=== PATIENT | male | born 1980 | race Caucasian/White ===

== ENCOUNTER 2022-02-15 11:25 | Emergency (ER) | payer OTHER ==
[~2022-02-15] VITALS: Ht 177.8 cm; Wt 100.0 kg
[2022-02-15 12:53] LABS: BASOPHILS % 0.6 % (0.0-2.0); EOSINOPHILS % 8.6 % (0.0-5.0); HEMATOCRIT. 48.4 % (42.0-52.0); HEMOGLOBIN. 16.8 g/dL (14.0-18.0); LYMPHOCYTES % 37.9 % (20.0-50.0); MEAN CORPUSCULAR HEMOGLOBIN 30.7 pg (28.0-32.0); MEAN CORPUSCULAR VOLUME 88.2 fL (80.0-94.0); MEAN PLATELET VOLUME 7.8 fl (7.4-10.4); MONOCYTES % 5.7 % (2.0-8.0); NEUTROPHILS % 47.2 % (40.0-76.0); PLATELET 177 x1000/uL (130-400); RED BLOOD CELL COUNT 5.48 mill/uL (4.7-6.1); RED CELL DISTRIBUTION WIDTH 14.6 % (11.6-14.6)
[2022-02-15] MEDS ORDERED: HALOPERIDOL LACTATE 5MG/ML VIAL IM STA (13:30)
[2022-02-15] MEDS ORDERED: DIPHENHYDRAMINE 50MG/ML VIAL IM STA (13:30)
[2022-02-15] MEDS ORDERED: MIDAZOLAM HCL 2 MG/2 ML VIAL IM ONE (13:30)
[2022-02-15 13:35] LABS: CHLORIDE 107 mEq/L (98-107)
[2022-02-15 14:00] LABS: ETHANOL BLOOD 351 mg/dL
[2022-02-15 14:50] LABS: CLARITY URINE CLEAR (CLEAR); COLOR URINE YELLOW (YELLOW); KETONES URINE NEGATIVE (NEGATIVE); LEUKOCYTE ESTERASE URINE NEGATIVE (NEGATIVE); NITRITE URINE NEGATIVE (NEGATIVE); OCCULT BLOOD URINE 2+ (NEGATIVE); PROTEIN URINE NEGATIVE (NEGATIVE); SPECIFIC GRAVITY URINE 1.007 (1.005-1.030); UROBILINOGEN URINE 0.2 E.U./dL (0.2-1.0)
[2022-02-15 15:22] LABS: *AMPHETAMINES SCREEN URINE NEGATIVE (NEGATIVE); *BARBITURATES SCREEN URINE NEGATIVE (NEGATIVE); *BENZODIAZEPINES SCREEN URINE PRESUMTIVE POSITIVE (NEGATIVE); *COCAINE SCREEN URINE NEGATIVE (NEGATIVE); CANNABINOID URINE SCREEN NEGATIVE (NEGATIVE); METHADONE URINE SCREEN NEGATIVE (NEGATIVE); OPIATES URINE SCREEN NEGATIVE (NEGATIVE); PHENCYCLIDINE URINE SCREEN NEGATIVE (NEGATIVE)
[2022-02-15] MEDS ORDERED: LORAZEPAM 0.5MG TABLET PO ONE (19:00)
[2022-02-15] MEDS ORDERED: ACETAMINOPHEN 325MG TABLET PO ONE (19:00)
[2022-02-15] MEDS ORDERED: LORAZEPAM 1MG TABLET PO ONE (20:00)
[2022-02-16] MEDS ORDERED: CHLORDIAZEPOXIDE 25MG CAPSULE PO ONE (03:15)
[2022-02-16] MEDS ORDERED: PAROXETINE HCL 10MG TABLET PO SCH (10:30)
[2022-02-16 10:44] LABS: ETHANOL BLOOD < 10 mg/dL
[2022-02-16 18:34] VITALS: BP 154/98
[2022-02-16] MEDS ORDERED: BUSPIRONE HCL 5MG TABLET PO SCH (21:00)
== END 2022-02-16 19:05 ==
LOC: ER 11:40
DX: R45.851 Suicidal ideations (principal); F10.129 Alcohol abuse with intoxication, unspecified; Y90.8 Blood alcohol level of 240 mg/100 ml or more; Z20.822 Contact with and (suspected) exposure to COVID-19; F32.9 Major depressive disorder, single episode, unspecified
CPT/HCPCS: 36415; 80053; 80305; 80307; 80320; 81003; 85025; 96372; 99291; C9803; J1200; J1630; J2250; U0003; U0005; G0480

== ENCOUNTER 2022-02-22 14:44 | Emergency (ER) | payer OTHER ==
[~2022-02-22] VITALS: Ht 175.3 cm; Wt 68.0 kg
[2022-02-22 15:10] VITALS: BP 132/73
[2022-02-22] MEDS ORDERED: CHLORDIAZEPOXIDE 25MG CAPSULE PO ONE (15:30)
[2022-02-22 15:36] LABS: EOSINOPHILS % 3.8 % (0.0-5.0); HEMATOCRIT. 46.2 % (42.0-52.0); HEMOGLOBIN. 16.1 g/dL (14.0-18.0); LYMPHOCYTES % 37.3 % (20.0-50.0); MEAN CORPUSCULAR HEMOGLOBIN 30.8 pg (28.0-32.0); MEAN CORPUSCULAR VOLUME 88.6 fL (80.0-94.0); MEAN PLATELET VOLUME 7.5 fl (7.4-10.4); NEUTROPHILS % 46.9 % (40.0-76.0); PLATELET 160 x1000/uL (130-400); RED BLOOD CELL COUNT 5.21 mill/uL (4.7-6.1); RED CELL DISTRIBUTION WIDTH 14.7 % (11.6-14.6)
[2022-02-22 15:46] LABS: CHLORIDE 106 mEq/L (98-107)
[2022-02-22 16:39] LABS: ETHANOL BLOOD 330 mg/dL
== END 2022-02-22 18:08 | disposition home or self-care (01) ==
LOC: ER 14:44
DX: F10.129 Alcohol abuse with intoxication, unspecified (principal); Y90.8 Blood alcohol level of 240 mg/100 ml or more; J45.909 Unspecified asthma, uncomplicated; Z88.8 Allergy status to other drugs, medicaments and biological substances; Z87.891 Personal history of nicotine dependence
CPT/HCPCS: 36415; 80053; 80320; 85025; 99283; G0480